=== PATIENT | female | born 1970 | race Caucasian/White ===

== ENCOUNTER 2019-07-19 17:16 | Inpatient (IN) ==
--- NOTE | 2019-07-19 17:33 | ERNOTE ---
Abdominal HPI - Narrative Date of Service: 07/19/19 - General Chief Complaint: Abdominal Pain Time Seen by Provider: 07/19/19 17:32 Source: patient Exam Limitations: no limitations - Immun/Allergies/Home Medications Immunizatons: IMMUNIZATION HX Immunizations Up to Date Yes History of Influenza Vaccine No Hx Pneumococcal Vaccination No Allergies/Adverse Reactions: Allergies No Known Allergies Allergy (Unverified 07/19/19 17:24) Home Medications: HOME MEDICATIONS NK 07/19/19 [Last Taken Unknown] - Pain Score Pain Score #1 Pain Score: 9 Abdominal Pain Onset Location: RUQ, RLQ, epigastric Pain Radiation: chest - History of Present Illness Narrative: 49 yr old female in good health presents with RUQ and RLQ pain since yesterday. Describes as sharp, rates /10. Reports nausea and vomiting. Denies any fever or chills. Radiates to epigastric and chest region. Reports decreased appetite. Denies any difficulty in urination. Last ate cereal at 1:30 pm today. Denies any aggravating or alleviating factors. Date (Duration): 07/19/19 Time (Timing): 17:32 Timing: constant Quality: severe Activities at Onset: none Modifying Factors - (Improves): Present: other - nothing Modifying Factors - (Worsens): Present: other - nothing Associated Symptoms: Present: chest pain - epigastric, heartburn, nausea, vomiting, loss of appetite. Absent: headache, diaphoresis, diarrhea-gross blood, diarrhea-mucous, fever/chills, shortness of breath Prior Abdominal Problems: Present: none Review of Systems - Review of Systems Constitutional: Absent: recent illness, fever, diaphoresis EYE: Present: no symptoms reported ENT: Present: no symptoms reported Respiratory: Absent: shortness of breath Cardiology: Present: chest pain Gastrointestinal/Abdominal: Present: nausea, vomiting, abdominal pain, eating less, drinking less. Absent: diarrhea Genitourinary: Absent: pain, dysuria Musculoskeletal: Present: no symptoms reported Skin: Present: no symptoms reported Neurological: Present: no symptoms reported Endocrine: Present: no symptoms reported Hematologic/Lymphatic: Present: no symptoms reported Psych: Present: no symptoms reported All Other Systems: All systems neg except as marked Medical History (Updated 07/19/19 @ 17:22 by Sylvia Simpson RN) No active medical problems Surgical History: Surgical History (Updated 07/19/19 @ 17:22 by Sylvia Simpson RN) H/O cone biopsy of cervix H/O dilation and curettage Family History: Family History (Last Reviewed 07/19/19 @ 20:14 by ANNE Richardson) Mother Ovarian cancer Father Hypertension Diabetes Social History: (Last Reviewed 07/19/19 @ 20:14 by ANNE Richardson) Tobacco: Smoking Status: Current every day smoker Smoking cigarettes per day: 15 Alcohol: alcohol intake: current alcohol intake frequency: holiday/special occasion Substance Use: substance use type: does not use Physical Exam - Physical Exam General Appearance: Present: wd/wn, alert, no apparent distress Head Exam: Present: normal inspection, no evidence of injury Eye Exam: Normal inspection: bilateral, PERRL: bilateral, EOMI: bilateral Ears, Nose, Throat: Present: normal ENT inspection, normal pharynx Neck: Present: normal inspection Respiratory: Present: no respiratory distress, normal breath sounds, no accessory muscle use, chest nontender, lungs clear Cardiovascular/Chest: Present: regular rate, rhythm, no murmur, normal peripheral pulses Gastrointestinal/Abdominal: Present: nondistended, soft, tenderness - Tenderness to palpation over the RLQ and RUQ , abnormal bowel sounds - decreased bowel sounds, McBurney sign, Self sign. Absent: distended, guarding, rebound Back Exam: Present: normal inspection, normal range of motion, no CVA tenderness, no vertebral tenderness Extremity Exam: Present: normal inspection, normal range of motion, no edema Neurological Exam: Present: alert, oriented, normal mood/affect, no motor/sensory deficits Skin Exam: Present: normal color, warm/dry Progress - Results and Orders Patient's Lab Results:: I have reviewed the patient's lab results. Results and Orders: Laboratory Tests 07/19/19 07/19/19 07/19/19 17:48 17:48 17:48 WBC 11.1 H Hgb 14.4 Hct 43.8 Plt Count 287 Sodium 142 Potassium 3.7 Chloride 103 Carbon Dioxide 28.3 Anion Gap 14.4 H BUN 13 Creatinine 0.74 Random Glucose 127 H Calcium 9.7 Total Bilirubin 0.5 AST 31 ALT 38 Alkaline Phosphatase 98 Total Protein 7.9 Albumin 4.1 Amylase 43 Lipase 96 Serum HCG, Qual Negative - Vital Signs Patient's Vital Signs:: I have reviewed the patient's vital signs. Vital Signs: Vital Signs 07/19/19 17:26 Temperature 36.6 C Pulse Rate 83 Respiratory Rate 18 Blood Pressure 145/95 H O2 Sat by Pulse Oximetry 99 - CT/Ultrasound CT/Ultrasound Narrative: CT abd/pelvis - acute appendicitis - Progress/Reassessment Chief Complaint: Abdominal Pain Progress:: Improved Progress Note-Subjective: 07/19/19 20:54 Test results and etiology reviewed with the patient. Case staffed with Dr. Diane who accepts the patient for surgery. Surgical crew will be called in. Pain is improved, rates 4/10. Nausea is resolved. - Transfer of Care Physician Sign Out: Alaina Martinez Brief History: 49 yr old two day hx of RUQ and RLQ abdominal pain with nausea and decreased appetite. Last ate cereal at 1:[address] shows acute appendicitis Receiving Physician: Sarah Beth Diane Pending Results: Physician/consult arrival Expected Disposition: Admit Plan - Plan Plan: Transferred to Dr. Diane's care to go to surgery. Departure Clinical Impression: Acute appendicitis Qualifiers: Acute appendicitis type: unspecified acute appendicitis type Qualified Code(s): K35.80 - Unspecified acute appendicitis - Departure Disposition: Still a patient Condition: Good Referrals: Arelis Dallas DO [Primary Care Provider] -
[2019-07-19] MEDS ORDERED: MORPHINE SULFATE 2 MG/ML DISP.SYRIN IV ONE (17:42)
[2019-07-19] MEDS ORDERED: NORMAL SALINE 1,000 ML IV ONE (17:42)
[2019-07-19] MEDS ORDERED: ONDANSETRON HCL/PF 2 MG/ML VIAL IV ONE (17:42)
[2019-07-19 17:55] LABS: Hematocrit 43.8 % (37.0-47.0); Hemoglobin 14.4 gm/dL (12.5-16.0); Mean Cell Volume 100.7 fl (78-100); Mean Corpuscular Hemoglobin 33.1 pg (27-31); Mean Corpuscular Hgb Conc 32.9 g/dl (32-36); Mean Platelet Volume 9.2 fl (8-12.5); Neutrophil # 8.7 K/mm3 (1.3-6.0); Neutrophil % 78.6 % (42-75.0); Platelet Count 287 K/mm3 (150-450); Red Blood Count 4.35 M/mm3 (4.2-5.4); Red Cell Distribution Width 13.4 % (11.5-14.0); White Blood Count 11.1 K/mm3 (4.0-10.5)
[2019-07-19 18:09] LABS: Albumin * 4.1 gm/dl (3.4-5.0); Anion Gap 14.4 mmol/L (6.8-13.8); BUN/Creatinine Ratio 17.6 (9.0-21.6); Bilirubin, Total 0.5 mg/dL (0.0-1.1); Ca. Corrected For Albumin 9.3 mg/dL (8.4-10.2); Calcium * 9.7 mg/dL (7.9-10.9); Carbon Dioxide 28.3 mmol/L (24-32.6); Potassium 3.7 mmol/L (3.4-4.6); Total Protein 7.9 gm/dL (6.2-8.2)
[2019-07-19] MEDS ORDERED: HYDROmorphone HCL 1 MG/ML DISP.SYRIN IV ONE ×2 (18:23→21:03)
[2019-07-19] MEDS ORDERED: DIATRIZOATE MEGLUMINE, SODIUM 30 ML BTL ONE (18:37)
[2019-07-19] MEDS ORDERED: DIATRIZOATE MEGLUMINE, SODIUM 30 ML BTL PO ONE (18:37)
[2019-07-19 19:36] LABS: Urine Bilirubin 1 mg/dl (NEGATIVE); Urine Ketone 15 mg/dL (NEGATIVE); Urine Nitrite Negative (NEGATIVE); Urine Protein 15 mg/dL (NEGATIVE); Urine Specific Gravity >=1.030 SP.GR. (1.005-1.010); Urine Urobilinogen Normal (NORMAL)
[2019-07-19 20:00] LABS: Urine Appearance Slightly Cloudy (CLEAR); Urine Blood 10 /ul (NEGATIVE); Urine Color Yellow
[2019-07-19 20:01] LABS: Urine Bacteria 1+; Urine Renal Epithelial Cell Few - 1+ /hpf; Urine WBC 0-5 /hpf (0-5)
[2019-07-19] MEDS ORDERED: LIDOCAINE HCL 20 ML VIAL ONE (21:14)
[2019-07-19] MEDS ORDERED: KETOROLAC TROMETHAMINE 30 MG/ML VIAL ONE (21:15)
[2019-07-19] MEDS ORDERED: GLYCOPYRROLATE 0.2 MG/ML VIAL ONE (21:15)
[2019-07-19] MEDS ORDERED: ONDANSETRON HCL/PF 2 MG/ML VIAL ONE (21:15)
[2019-07-19] MEDS ORDERED: fentaNYL CITRATE/PF 50 MCG/ML AMPUL ONE (21:15)
[2019-07-19] MEDS ORDERED: NEOSTIGMINE METHYLSULFATE 1 MG/ML VIAL ONE (21:15)
[2019-07-19] MEDS ORDERED: ROCURONIUM BROMIDE 10 MG/ML VIAL ONE (21:16)
[2019-07-19] MEDS ORDERED: PROPOFOL VIAL IV ONE (21:16)
[2019-07-19] MEDS ORDERED: SUCCINYLCHOLINE CHLORIDE 20 MG/ML VIAL ONE (21:16)
[2019-07-19] MEDS ORDERED: MUPIROCIN 22 APPL TUBE TP ONE (21:30)
[2019-07-19] MEDS ORDERED: BUPIVACAINE HCL/EPINEPHRINE 50 ML VIAL ONE (21:31)
[2019-07-19] MEDS ORDERED: ISOPROPYL ALCOHOL 480 APPL BTL MC ONE (21:32)
--- NOTE | 2019-07-19 21:38 | ANES ---
Anesthesia Pre Procedure Eval Vitals/Labs: Last Vital Signs Temp 36.6 C 07/19/19 17:26 Pulse 88 07/19/19 18:15 Resp 18 07/19/19 18:15 BP 126/88 07/19/19 18:15 Pulse Ox 96 07/19/19 18:15 HOME MEDICATIONS NK 07/19/19 [Last Taken Unknown] Allergies/Adverse Reactions: Allergies Allergy/AdvReac Type Severity Reaction Status Date / Time No Known Allergies Allergy Unverified 07/19/19 17:24 - Planned Procedure Planned Procedure: Lap Appy Medication List Reviewed:: Yes Allergies Verified: Yes Medical History (Updated 07/19/19 @ 20:59 by ANNE Richardson) No active medical problems Surgical History (Updated 07/19/19 @ 17:22 by Sylvia Simpson RN) H/O cone biopsy of cervix H/O dilation and curettage Family History (Last Reviewed 07/19/19 @ 21:37 by Jarrod Peña CRNA) Mother Ovarian cancer Father Hypertension Diabetes - Family Anesthesia History Family History:: no untoward family reactions to anesthesia, no familial bleeding tendencies, no family history of clotting disorders, no family history of premature - Airway/Neck/Teeth Within Normal Limits:: Yes Teeth Condition: intact Mallampatti Score: 2 Thyromental (T-M) distance: > 6 cm Mandibulo Hyoid distance: > 3 cm - Respiratory Respiratory Physical: lungs clear Smoking Status: Current every day smoker Discussed smoking cessation including day of surgery: Yes Sleep Apnea currently treated: No Sleep Apnea by current assessment: No Discussed Risks/Treatment of MARIPOSA: No - Cardiovascular Tolerate Activity: Good Heart Sounds: S1 & S2, Regular - Anesthesia Assessment and Plan ASA Class: PS, II, E Anesthesia Type Plan: General ET
--- NOTE | 2019-07-19 21:38 | HP ---
Chief Complaint - Chief Complaint Date of Service: 07/19/19 Time of Service: 21:32 Chief Complaint: abdominal pain, appendicitis History of Present Illness: Started with abdominal pain yesterday. Continued today and moved to [facility]. WBC elevated, RLQ tenderness and CT scan evidence of acute appendicitis Medical History (Updated 07/19/19 @ 20:59 by ANNE Richardson) No active medical problems Surgical History: Surgical History (Updated 07/19/19 @ 17:22 by Sylvia Simpson RN) H/O cone biopsy of cervix H/O dilation and curettage Family History: Family History (Last Reviewed 07/19/19 @ 21:34 by Sarah Beth Diane MD) Mother Ovarian cancer Father Hypertension Diabetes Social History: (Last Reviewed 07/19/19 @ 21:34 by Sarah Beth Diane MD) Tobacco: Smoking Status: Current every day smoker Smoking cigarettes per day: 15 Alcohol: alcohol intake: current alcohol intake frequency: holiday/special occasion Substance Use: substance use type: does not use Review Of Systems (GEN) - Review of Systems Generalized/Overall Review: Present: Malaise. Absent: Chills, Fever EENTM: Present: No Symptoms Reported Respiratory: Present: No Symptoms Reported Cardiac: Present: No Symptoms Reported Abdominal: Present: Abdominal Pain Genitourinary: Present: No Symptoms Reported Musculoskeletal: Present: No Symptoms Reported Neurological: Present: No Symptoms Reported Skin: Present: No Symptoms Reported Misc: All systems neg except as marked Immunizations: IMMUNIZATION HX Immunizations Up to Date Yes History of Influenza Vaccine No Hx Pneumococcal Vaccination No Allergies/Adverse Reactions: Allergies Allergy/AdvReac Type Severity Reaction Status Date / Time No Known Allergies Allergy Unverified 07/19/19 17:24 Home Medications: HOME MEDICATIONS NK 07/19/19 [Last Taken Unknown] Exam - Exam Vital Signs: Vital Signs - Last Taken Temp 36.6 C 07/19/19 17:26 Pulse 88 07/19/19 18:15 Resp 18 07/19/19 18:15 BP 126/88 07/19/19 18:15 Pulse Ox 96 07/19/19 18:15 Constitutional: Present: Alert, Oriented x3, Cooperative, Obese ENT Exam: Present: normal ENT inspection Eye Exam: bilateral eye: normal inspection Neck: Present: full range of motion, normal inspection Back Exam: Present: normal inspection, no CVA tenderness Breasts: Present: Exam deferred Respiratory: Present: normal breath sounds Cardiovascular/Chest: Present: regular rate, rhythm, no murmur Abdomen: Present: other - tender RLQ /Rectal: Present: Exam deferred Extremity: Present: normal range of motion, normal inspection, no pedal edema, no calf tenderness Skin Exam: Present: warm/dry Neurologic: Present: 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, normal cerebellar test, no motor/sensory deficits, alert Appearance: Present: appropriate appearance, appropriate insight, neat Eye contact: Present: cooperative, good eye contact, normal speech Thoughts: Present: normal thought pattern Diagnostic Studies: Abnormal Lab Results 07/19/19 07/19/19 07/19/19 Range/Units 17:48 17:48 19:32 WBC 11.1 H (4.0-10.5) K/mm3 MCV 100.7 H (78-100) fl MCH 33.1 H (27-31) pg Immature Gran % (Auto) 0.50 H (0.001-0.429) % Immature Gran # (Auto) 0.05 H (0.000-0.0310) K/mm3 Neutrophils % 78.6 H (42-75.0) % Lymphocytes % 13.9 L (20-51) % Neutrophils # 8.7 H (1.3-6.0) K/mm3 Anion Gap 14.4 H (6.8-13.8) mmol/L Random Glucose 127 H (70-110) mg/dL Urine Protein 15 H (NEGATIVE) mg/dL Urine Blood 10 H (NEGATIVE) /ul Urine Bilirubin 1 H (NEGATIVE) mg/dl Urine Ictotest Positive H (NEGATIVE) Urine RBC 5-10 H (0-5) /hpf Ur Renal Epithelial Cell Few - 1+ H (NONE) /hpf Calcium Oxalate Crystal Few - 1+ H (NONE) /hpf Uric Acid Crystals Moderate - 2+ H (NONE) /hpf Urine Bacteria 1+ H (NONE) Laboratory Results WBC 11.1 K/mm3 (4.0-10.5) H 07/19/19 17:48 RBC 4.35 M/mm3 (4.2-5.4) 07/19/19 17:48 Hgb 14.4 gm/dL (12.5-16.0) 07/19/19 17:48 Hct 43.8 % (37.0-47.0) 07/19/19 17:48 MCV 100.7 fl (78-100) H 07/19/19 17:48 MCH 33.1 pg (27-31) H 07/19/19 17:48 MCHC 32.9 g/dl (32-36) 07/19/19 17:48 RDW 13.4 % (11.5-14.0) 07/19/19 17:48 Plt Count 287 K/mm3 (150-450) 07/19/19 17:48 MPV 9.2 fl (8-12.5) 07/19/19 17:48 Immature Gran % (Auto) 0.50 % (0.001-0.429) H 07/19/19 17:48 Immature Gran # (Auto) 0.05 K/mm3 (0.000-0.0310) H 07/19/19 17:48 78.6 % (42-75.0) H 07/19/19 17:48 13.9 % (20-51) L 07/19/19 17:48 5.7 % (0.0-9) 07/19/19 17:48 0.9 % (0.0-3.0) 07/19/19 17:48 0.4 % (0.0-1.0) 07/19/19 17:48 Nucleated RBC % 0.0 k/mm3 (0-1) 07/19/19 17:48 8.7 K/mm3 (1.3-6.0) H 07/19/19 17:48 1.54 k/mm3 (1.5-3.5) 07/19/19 17:48 0.6 k/mm3 (0.0-1.0) 07/19/19 17:48 0.1 k/mm3 (0.0-0.7) 07/19/19 17:48 Absolute Basophils 0.0 k/mm3 (0.0-0.1) 07/19/19 17:48 Sodium 142 mmol/L (132-142) 07/19/19 17:48 142 mmol/L (130-142) 07/19/19 17:48 Potassium 3.7 mmol/L (3.4-4.6) 07/19/19 17:48 Chloride 103 mmol/L (97-106) 07/19/19 17:48 Carbon Dioxide 28.3 mmol/L (24-32.6) 07/19/19 17:48 14.4 mmol/L (6.8-13.8) H 07/19/19 17:48 BUN 13 mg/dL (3-23) 07/19/19 17:48 0.74 mg/dL (0.4-1.4) 07/19/19 17:48 Est GFR (Non-Af Amer) 89 mL/min (60-130) D 07/19/19 17:48 17.6 (9.0-21.6) 07/19/19 17:48 127 mg/dL (70-110) H 07/19/19 17:48 Calcium 9.7 mg/dL (7.9-10.9) 07/19/19 17:48 Calcium Adj for Albumin 9.3 mg/dL (8.4-10.2) 07/19/19 17:48 0.5 mg/dL (0.0-1.1) 07/19/19 17:48 AST 31 U/L (0-48) 07/19/19 17:48 ALT 38 U/L (19-67) 07/19/19 17:48 98 U/L (50-170) 07/19/19 17:48 7.9 gm/dL (6.2-8.2) 07/19/19 17:48 4.1 gm/dl (3.4-5.0) 07/19/19 17:48 Amylase 43 U/L (25-115) 07/19/19 17:48 96 U/L (73-393) 07/19/19 17:48 Serum HCG, Qual Negative (NEGATIVE) 07/19/19 17:48 Yellow 07/19/19 19:32 Slightly cloudy (CLEAR) 07/19/19 19:32 6.0 pH (5.0-7.0) 07/19/19 19:32 Ur Specific [place] >=1.030 SP.GR. (1.005-1.010) 07/19/19 19:32 15 mg/dL (NEGATIVE) H 07/19/19 19:32 Negative mg/dL (NEGATIVE) 07/19/19 19:32 15 mg/dL (NEGATIVE) 07/19/19 19:32 10 /ul (NEGATIVE) H 07/19/19 19:32 Negative (NEGATIVE) 07/19/19 19:32 1 mg/dl (NEGATIVE) H 07/19/19 19:32 Positive (NEGATIVE) H 07/19/19 19:32 Prot Sulfosalicylic Acd 1+ mg/dL (0) 07/19/19 19:32 Normal EU/dl (NORMAL) 07/19/19 19:32 Ur Leukocyte Esterase Negative /ul (NEGATIVE) 07/19/19 19:32 5-10 /hpf (0-5) H 07/19/19 19:32 0-5 /hpf (0-5) 07/19/19 19:32 Ur Epithelial Cells Trace /hpf (0-5) 07/19/19 19:32 Ur Renal Epithelial Cell Few - 1+ /hpf (NONE) H 07/19/19 19:32 Calcium Oxalate Crystal Few - 1+ /hpf (NONE) H 07/19/19 19:32 Uric Acid Crystals Moderate - 2+ /hpf (NONE) H 07/19/19 19:32 1+ (NONE) H 07/19/19 19:32 No culture indicated 07/19/19 19:32 CT scan shows acute apppendicitis Assessment/Plan - Assessment/Plan (1) Acute appendicitis Assessment: Explained appendicitis and appendectomy (laparoscopic or open). Risks and complications and expected post op course explained. After an interactive discussion her questions were answered to her apparent satisfaction and she has given informed consent for appendectomy. chlorhexidine wipes, IV Mefoxin, SCD's Problem: Acute Qualifiers: Acute appendicitis type: unspecified acute appendicitis type Qualified Code(s): K35.80 - Unspecified acute appendicitis
[2019-07-19] MEDS: RINGER'S SOLUTION,LACTATED 1,000 ML IV PRN ×2 (21:50→23:05)
[2019-07-19] MEDS ORDERED: BUPIVACAINE HCL/EPINEPHRINE 50 ML VIAL IJ ONE (23:00)
[2019-07-19] MEDS ORDERED: ONDANSETRON HCL/PF 2 MG/ML VIAL IV PRN (23:25)
[2019-07-19] MEDS ORDERED: RINGER'S SOLUTION,LACTATED 1,000 ML IV PRN (23:25)
[2019-07-19] MEDS ORDERED: HYDROmorphone HCL 1 MG/ML DISP.SYRIN IV PRN (23:25)
--- NOTE | 2019-07-19 23:32 | ANES ---
Post Anesthesia Discharge - Transfer of Care Transfer of Care handoff given to nurse: Yes - Discharge from PACU Discharge from PACU when meets criteria: Yes - Discharge to ASU Discharge to ASU-no complications/pt stable: Yes
[2019-07-19] MEDS ORDERED: NALOXONE HCL 0.4 MG/ML VIAL IV PRN (23:33)
[2019-07-19] MEDS ORDERED: diphenhydrAMINE HCL 50 MG/ML VIAL IV PRN (23:33)
[2019-07-19] MEDS ORDERED: PROCHLORPERAZINE EDISYLATE 5 MG/ML VIAL IV PRN (23:33)
--- NOTE | 2019-07-19 23:33 | ANES ---
Post Anesthesia Assessment - Vital Signs Vitals: Last Vital Signs Temp 36.6 C 07/19/19 21:55 Pulse 117 H 07/19/19 21:55 Resp 16 07/19/19 21:55 BP 135/92 H 07/19/19 21:55 Pulse Ox 94 07/19/19 21:55 Airway Patency: Normal - Mental Status Level Of Consciousness: Awake - Pain Level Pain Score: 0 - N/V Assessment Nausea/Vomiting Presence: None Dehydration:: No
[2019-07-20] MEDS: oxyCODONE HCL/ACETAMINOPHEN 1 TAB TABLET PO PRN ×4 (03:35→19:57)
[2019-07-20] MEDS ORDERED: CEFOXITIN SODIUM 2 GM in DEXTROSE 5 % IN WATER 100 ML IV SCH ×2 (04:00)
[2019-07-20 05:44] LABS: Hematocrit 37.4 % (37.0-47.0); Hemoglobin 12.1 gm/dL (12.5-16.0); Mean Cell Volume 101.9 fl (78-100); Mean Corpuscular Hgb Conc 32.4 g/dl (32-36); Mean Platelet Volume 9.4 fl (8-12.5); Neutrophil # 15.5 K/mm3 (1.3-6.0); Neutrophil % 89.7 % (42-75.0); Platelet Count 226 K/mm3 (150-450); Red Blood Count 3.67 M/mm3 (4.2-5.4); Red Cell Distribution Width 13.7 % (11.5-14.0); White Blood Count 17.3 K/mm3 (4.0-10.5)
[2019-07-20] MEDS ORDERED: CEFOXITIN SODIUM 2 GM in DEXTROSE 5 % IN WATER 100 ML IV PRN ×2 (06:00)
[2019-07-20] MEDS: PIPERACILLIN SODIUM/TAZOBACTAM 3.375 GM in DEXTROSE 5 % IN WATER 100 ML IV SCH ×6 (08:40→23:15)
[2019-07-20] MEDS: SACCHAROMYCES BOULARDII 250 MG CAPSULE PO SCH ×2 (08:46→20:30)
--- NOTE | 2019-07-20 12:41 | OR ---
Operative Report - Dictated Report Narrative: Date of operation 07/19/2019 Preoperative diagnosis: Acute appendicitis Postoperative diagnosis: Acute appendicitis with rupture and generalized peritonitis Operation: Laparoscopic appendectomy Surgeon: AGUSTIN Diane MD Anesthesia: Gen. cachorro Peña CRNA Indications for procedure: The patient is a 49-year-old female with a 2-day history of abdominal pain. She presented to the emergency room where she was found to have right lower quadrant tenderness, elevated white blood cell count, and CT scan evidence of acute appendicitis. Findings: Acute appendicitis with generalized peritonitis Narrative of procedure: The patient was identified preoperatively, and prior to the administration of anesthetic a multidisciplinary timeout was observed. The patient was placed supine, SCDs were applied, and[]. [] was administered. The patient's abdomen was prepped with Betadine solution, and a generous operating field outlined with 4 sterile towels. The remainder the patient was covered with a sterile disposable drape. A transverse infraumbilical skin incision was made, and dissection was carried along the umbilical stalk until the fascia of the linea alba was encountered. This was incised. The peritoneum was elevated and incised to allow entry into the abdomen under direct vision. There was cloudy purulent fluid encountered. A Hussan cannula was placed and the abdomen insufflated with CO2. The laparoscopic camera was introduced and the abdomen briefly explored. Immediately apparent was erythematous small bowel with exudate. There was cloudy fluid in the pelvis and along the right gutter. The liver, stomach, and colon visualized appeared normal. The appendix was not immediately visible. The small bowel in the right lower quadrant was erythematous with exudate. Next under direct vision, 2 additional working ports were inserted through separate skin incisions, one in the suprapubic area one in the left lower quadrant. The fluid in the pelvis and along the right gutter was carefully suctioned clean. The apex of the cecum was then elevated revealing markedly inflamed appendix. This was gradually developed by blunt dissection back to a viable appearing appendiceal base. The appendix appeared amenable to laparoscopic removal. The appendix and mesoappendix were crossclamped with a laparoscopic REYNOLD stapling device. The stump of the appendix was seen to be hemostatic and gas and liquid tight. The mesoappendix was seen to be hemostatic. The appendix was placed in an Endobag and parked in the right lower quadrant. The abdomen was again suctioned clean of all visible fluid and exudate. A sample of exudate was submitted for culture. The small working ports were then withdrawn under direct vision to ensure entry site hemostasis. The appendix was removed in conjunction with the Hussan cannula. The pneumoperitoneum was allowed to escape, and after receiving a correct sponge needle and instrument count attention was turned to closing the abdomen. The fascia and peritoneum at the umbilicus were approximated with interrupted sutures of #1 Vicryl. Subcutaneous tissue at the umbilicus was approximated with a single chromic suture. Skin incisions were approximated with interrupted vertical mattress sutures of 4-0 nylon. The operative sites were washed and dried. Dressings of Bactroban ointment and large Band-Aids were applied to the small port sites. The umbilical incision was dressed with Bactr oban ointment, 2 x 2, large Band-Aid, and Medipore tape. The operative procedure was terminated at this point. There was no measurable blood loss. 0.5% Marcaine with epinephrine was used for local anesthetic infiltration area the appendix was submitted to pathology. The patient tolerated the anesthetic and procedure well without complication and was transferred to the recovery room awake, extubated, and in stable condition. Reviewed and electronically signed
--- NOTE | 2019-07-20 19:30 | PN ---
Subjective - Date and Time Seen Date: 07/20/19 Time: 19:25 Subjective Narrative: feels much better, just sore from incisions Objective - Review of Systems Generalized/Overall Review: Denies: Chills, Fever EENTM: Reports: No Symptoms Reported Respiratory: Reports: No Symptoms Reported Cardiac: Reports: No Symptoms Reported Abdominal: Reports: Other - pain is now incisional Genitourinary Symptoms: Reports: No Symptoms Reported Musculoskeletal Complaints: Reports: No Symptoms Reported Skin: Reports: No Symptoms Reported Endocrine: Reports: No Symptoms Reported Misc: All systems neg except as marked - Vitals Vitals: Last Vital Signs Temp 37.3 C 07/20/19 17:20 Pulse 88 07/20/19 17:20 Resp 14 07/20/19 17:20 BP 120/80 07/20/19 17:20 Pulse Ox 96 07/20/19 17:20 - Abnormal Lab Findings Abnormal Lab Findings: Abnormal Lab Results 07/19/19 07/20/19 Range/Units 19:32 05:20 WBC 17.3 H D (4.0-10.5) K/mm3 RBC 3.67 L (4.2-5.4) M/mm3 Hgb 12.1 L (12.5-16.0) gm/dL MCV 101.9 H (78-100) fl MCH 33.0 H (27-31) pg Immature Gran % (Auto) 0.70 H (0.001-0.429) % Immature Gran # (Auto) 0.12 H (0.000-0.0310) K/mm3 Neutrophils % 89.7 H (42-75.0) % Lymphocytes % 4.5 L (20-51) % Neutrophils # 15.5 H (1.3-6.0) K/mm3 Lymphocytes # 0.77 L (1.5-3.5) k/mm3 Urine Protein 15 H (NEGATIVE) mg/dL Urine Blood 10 H (NEGATIVE) /ul Urine Bilirubin 1 H (NEGATIVE) mg/dl Urine Ictotest Positive H (NEGATIVE) Urine RBC 5-10 H (0-5) /hpf Ur Renal Epithelial Cell Few - 1+ H (NONE) /hpf Calcium Oxalate Crystal Few - 1+ H (NONE) /hpf Uric Acid Crystals Moderate - 2+ H (NONE) /hpf Urine Bacteria 1+ H (NONE) - Exam Constitutional: Present: Alert, Oriented x3, Cooperative, Overweight ENT Exam: Present: normal ENT inspection Neck: Present: full range of motion, normal inspection Respiratory: Present: no respiratory distress Cardiovascular/Chest: Present: regular rate, rhythm Abdomen: Present: other - dressings intact /Rectal: Present: Exam deferred Extremity: Present: normal range of motion, no pedal edema, no calf tenderness Skin Exam: Present: warm/dry Neurologic: Present: 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 Encourage OOB and pulmonary toilet, SCD's re-check CBC in AM - Problems/Diagnosis (1) Acute appendicitis Problem: Acute Qualifiers: Acute appendicitis type: with generalized peritonitis Appendicitis gangrene presence: with gangrene Appendicitis perforation presence: with perforation Appendicitis abscess presence: without abscess Qualified Code(s): K35.20 - Acute appendicitis with generalized peritonitis, without abscess; K35.891 - Other acute appendicitis without perforation, with gangrene
[2019-07-21] MEDS: oxyCODONE HCL/ACETAMINOPHEN 1 TAB TABLET PO PRN ×6 (00:11→22:28)
[2019-07-21] MEDS: PIPERACILLIN SODIUM/TAZOBACTAM 3.375 GM in DEXTROSE 5 % IN WATER 100 ML IV SCH ×6 (07:11→22:30)
[2019-07-21 07:18] LABS: Hematocrit 34.6 % (37.0-47.0); Mean Cell Volume 102.4 fl (78-100); Mean Corpuscular Hemoglobin 32.5 pg (27-31); Mean Corpuscular Hgb Conc 31.8 g/dl (32-36); Mean Platelet Volume 9.1 fl (8-12.5); Neutrophil # 9.1 K/mm3 (1.3-6.0); Neutrophil % 78.8 % (42-75.0); Platelet Count 205 K/mm3 (150-450); Red Blood Count 3.38 M/mm3 (4.2-5.4); Red Cell Distribution Width 13.6 % (11.5-14.0); White Blood Count 11.5 K/mm3 (4.0-10.5)
[2019-07-21] MEDS: SACCHAROMYCES BOULARDII 250 MG CAPSULE PO SCH ×2 (08:39→22:28)
[2019-07-21 11:20] LABS: Urine Bilirubin Negative (NEGATIVE); Urine Blood 50 /ul (NEGATIVE); Urine Ketone 5 mg/dL (NEGATIVE); Urine Nitrite Negative (NEGATIVE); Urine Protein 15 mg/dL (NEGATIVE); Urine Urobilinogen Normal (NORMAL)
[2019-07-21 11:35] LABS: Urine Appearance Slightly Cloudy (CLEAR); Urine Color Yellow
[2019-07-21 11:36] LABS: Urine Bacteria None Seen; Urine WBC 0-5 /hpf (0-5)
[2019-07-21] MEDS ORDERED: BISACODYL 10 MG SUPP.RECT RC ONE (14:43)
--- NOTE | 2019-07-21 17:01 | PN ---
Subjective - Date and Time Seen Date: 07/21/19 Time: 16:39 Subjective Narrative: She is POD #2 after laparoscopic appendectomy for acute appendicitis with rupture and generalized peritonitis. Objective Objective Narrative: Overall she feels better with only incisional discomfort. She has passed some gas but has not moved her bowels. She has ambulated in the esparza. She washed her hair today - Review of Systems Generalized/Overall Review: Reports: Malaise - When her temperature was elevated she felt poorly, but did not have chills EENTM: Reports: No Symptoms Reported Respiratory: Reports: No Symptoms Reported. Denies: Cough, Shortness of Breath Cardiac: Denies: Chest Pain Abdominal: Reports: Other - Her pain now is only incisional--- presenting pain gone Genitourinary Symptoms: Reports: No Symptoms Reported Musculoskeletal Complaints: Reports: No Symptoms Reported Neurological: Reports: No Symptoms Reported Skin: Reports: No Symptoms Reported Misc: All systems neg except as marked - Vitals Vitals: Last Vital Signs Temp 37.2 C 07/21/19 15:39 Pulse 102 H 07/21/19 15:39 Resp 16 07/21/19 15:39 BP 136/94 H 07/21/19 15:39 Pulse Ox 94 07/21/19 15:39 - Abnormal Lab Findings Abnormal Lab Findings: Abnormal Lab Results 07/21/19 07/21/19 Range/Units 07:15 10:59 WBC 11.5 H D (4.0-10.5) K/mm3 RBC 3.38 L (4.2-5.4) M/mm3 Hgb 11.0 L (12.5-16.0) gm/dL Hct 34.6 L (37.0-47.0) % MCV 102.4 H (78-100) fl MCH 32.5 H (27-31) pg MCHC 31.8 L (32-36) g/dl Immature Gran % (Auto) 0.50 H (0.001-0.429) % Immature Gran # (Auto) 0.06 H (0.000-0.0310) K/mm3 Neutrophils % 78.8 H (42-75.0) % Lymphocytes % 12.7 L (20-51) % Neutrophils # 9.1 H (1.3-6.0) K/mm3 Lymphocytes # 1.46 L (1.5-3.5) k/mm3 Urine Protein 15 H (NEGATIVE) mg/dL Urine Blood 50 H (NEGATIVE) /ul Urine RBC 5-10 H (0-5) /hpf - Exam Constitutional: Present: Alert, Oriented x3, Cooperative, No distress, Overweight ENT Exam: Present: normal ENT inspection Neck: Present: full range of motion, normal inspection Respiratory: Present: normal breath sounds Cardiovascular/Chest: Present: regular rate, rhythm, tachycardia Abdomen: Present: other - Dressings dry and intact Extremity: Present: normal range of motion, no pedal edema, no calf tenderness Skin Exam: Present: warm/dry 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 There is a lot of colon gas and contrast Urinalysis is negative for WBCs. Blood cultures were obtained. The cultures from the peritoneal cavity are no growth Will continue IV Zosyn, encourage pulmonary toilet and ambulation. We will give Dulcolax to decrease abdominal gas Will recheck CBC tomorrow. - Problems/Diagnosis (1) Acute appendicitis Problem: Acute Qualifiers: Acute appendicitis type: with generalized peritonitis Appendicitis gangrene presence: with gangrene Appendicitis perforation presence: with perforation Appendicitis abscess presence: without abscess Qualified Code(s): K35.20 - Acute appendicitis with generalized peritonitis, without abscess; K35.891 - Other acute appendicitis without perforation, with gangrene
[2019-07-21] MEDS ORDERED: BISACODYL 5 MG TABLET.DR PO ONE (17:19)
[2019-07-22] MEDS: oxyCODONE HCL/ACETAMINOPHEN 1 TAB TABLET PO PRN ×5 (02:53→23:18)
[2019-07-22 07:23] LABS: Hematocrit 34.5 % (37.0-47.0); Hemoglobin 11.3 gm/dL (12.5-16.0); Mean Cell Volume 100.9 fl (78-100); Mean Corpuscular Hgb Conc 32.8 g/dl (32-36); Mean Platelet Volume 9.1 fl (8-12.5); Neutrophil # 5.7 K/mm3 (1.3-6.0); Neutrophil % 70.7 % (42-75.0); Platelet Count 237 K/mm3 (150-450); Red Blood Count 3.42 M/mm3 (4.2-5.4); Red Cell Distribution Width 13.4 % (11.5-14.0); White Blood Count 8.1 K/mm3 (4.0-10.5)
[2019-07-22] MEDS: PIPERACILLIN SODIUM/TAZOBACTAM 3.375 GM in DEXTROSE 5 % IN WATER 100 ML IV SCH ×6 (07:33→23:15)
[2019-07-22] MEDS: SACCHAROMYCES BOULARDII 250 MG CAPSULE PO SCH ×2 (08:14→20:42)
--- NOTE | 2019-07-22 20:32 | PN ---
Subjective - Date and Time Seen Date: 07/22/19 Time: 20:29 Subjective Narrative: She is POD #3 after laparoscopic appendectomy for acute appendicitis with rupture and generalized peritonitis. Objective Objective Narrative: Feels much better, no elevated temp and WBC to normal - Review of Systems Generalized/Overall Review: Denies: Chills, Fever EENTM: Reports: No Symptoms Reported Respiratory: Reports: No Symptoms Reported. Denies: Cough Cardiac: Reports: No Symptoms Reported. Denies: Chest Pain Abdominal: Reports: Other - incisional discomfort only. Denies: Nausea, Vomiting Genitourinary Symptoms: Reports: No Symptoms Reported Musculoskeletal Complaints: Reports: No Symptoms Reported Neurological: Reports: No Symptoms Reported Skin: Reports: No Symptoms Reported Endocrine: Reports: No Symptoms Reported - Vitals Vitals: Last Vital Signs Temp 37.0 C 07/22/19 19:47 Pulse 81 07/22/19 19:47 Resp 20 07/22/19 19:47 BP 134/93 H 07/22/19 19:47 Pulse Ox 95 07/22/19 19:47 - Abnormal Lab Findings Abnormal Lab Findings: Abnormal Lab Results 07/22/19 Range/Units 07:17 RBC 3.42 L (4.2-5.4) M/mm3 Hgb 11.3 L (12.5-16.0) gm/dL Hct 34.5 L (37.0-47.0) % MCV 100.9 H (78-100) fl MCH 33.0 H (27-31) pg Lymphocytes % 16.3 L (20-51) % Monocytes % 9.5 H (0.0-9) % Lymphocytes # 1.32 L (1.5-3.5) k/mm3 - Exam Constitutional: Present: Alert, Oriented x3, Cooperative, Overweight ENT Exam: Present: normal ENT inspection Neck: Present: full range of motion, normal inspection Respiratory: Present: no respiratory distress Cardiovascular/Chest: Present: regular rate, rhythm Abdomen: Present: other - dressings intact Extremity: Present: normal range of motion, no pedal edema, no calf tenderness Skin Exam: Present: warm/dry 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 Encourage OOB/pulmonary toilet - Problems/Diagnosis (1) Acute appendicitis Problem: Acute Qualifiers: Acute appendicitis type: with generalized peritonitis Appendicitis gangrene presence: with gangrene Appendicitis perforation presence: with perforation Appendicitis abscess presence: without abscess Qualified Code(s): K35.20 - Acute appendicitis with generalized peritonitis, without abscess; K35.891 - Other acute appendicitis without perforation, with gangrene
[2019-07-23] MEDS: oxyCODONE HCL/ACETAMINOPHEN 1 TAB TABLET PO PRN ×2 (04:08→09:13)
[2019-07-23] MEDS: PIPERACILLIN SODIUM/TAZOBACTAM 3.375 GM in DEXTROSE 5 % IN WATER 100 ML IV SCH ×2 (06:59)
[2019-07-23] MEDS: SACCHAROMYCES BOULARDII 250 MG CAPSULE PO SCH (08:15)
--- NOTE | 2019-07-23 09:11 | DS ---
(1) Acute appendicitis Problem: Acute Qualifiers: Acute appendicitis type: with generalized peritonitis Appendicitis gangrene presence: with gangrene Appendicitis perforation presence: with perforation Appendicitis abscess presence: without abscess Qualified Code(s): K35.20 - Acute appendicitis with generalized peritonitis, without abscess; K35.891 - Other acute appendicitis without perforation, with gangrene Date of Discharge:: 07/23/19 Description of Stay: She underwent a laparoscopic appendectomy for acute appendicitis with perforation and generalized peritonitis on 07/19/2019. VTE prophylaxis was accomplished with SCDs and early ambulation. Chlorhexidine wipes and preoperative IV antibiotics were used. She was admitted for IV antibiotics due to the generalized peritonitis. Cultures from surgery were no growth. She was maintained on IV Zosyn. Her white blood cell count decreased to normal however she continued to have elevated temperatures. She was able to tolerate an advanced diet and ambulate without assistance. Her incisions appear to be healing well. She will be discharged home with instructions not to lift. Regular diet. Change dressings daily or as needed. Continue home medications. Prescription given for Percocet 5/325 mg for pain. She has numbers to call for questions or concerns. Return office appointment will be made for 1 week Procedures Performed: see notes below - Laparoscopic appendectomy Results and Findings: Pending Mircobiology Results 07/21/19 Unknown Blood Blood Culture - Preliminary NO GROWTH 24 HOURS 07/21/19 10:40 Blood Blood Culture - Preliminary NO GROWTH 24 HOURS Lab Pending Results 07/19/19 01:50: Pathology Specimen Sent to path 07/19/19 17:48: WBC 11.1 H, RBC 4.35, Hgb 14.4, Hct 43.8, MCV 100.7 H, MCH 33.1 H, MCHC 32.9, RDW 13.4, Plt Count 287, MPV 9.2, Immature Gran % (Auto) 0.50 H, Immature Gran # (Auto) 0.05 H, Neutrophils % 78.6 H, Lymphocytes % 13.9 L, Monocytes % 5.7, Eosinophils % 0.9, Basophils % 0.4, Nucleated RBC % 0.0, Neutrophils # 8.7 H, Lymphocytes # 1.54, Monocytes # 0.6, Eosinophils # 0.1, Absolute Basophils 0.0 07/19/19 17:48: Sodium 142, Plasma Sodium 142, Potassium 3.7, Chloride 103, Carbon Dioxide 28.3, Anion Gap 14.4 H, BUN 13, Creatinine 0.74, Est GFR (Non-Af Amer) 89 D, BUN/Creatinine Ratio 17.6, Random Glucose 127 H, Calcium 9.7, Calcium Adj for Albumin 9.3, Total Bilirubin 0.5, AST 31, ALT 38, Alkaline Phosphatase 98, Total Protein 7.9, Albumin 4.1, Amylase 43, Lipase 96 07/19/19 17:48: Serum HCG, Qual Negative 07/19/19 19:32: Urine Color Yellow, Urine Appearance Slightly cloudy, Urine pH 6.0, Ur Specific Drew >=1.030, Urine Protein 15 H, Urine Glucose (UA) N egative, Urine Ketones 15, Urine Blood 10 H, Urine Nitrate Negative, Urine Bilirubin 1 H, Urine Ictotest Positive H, Prot Sulfosalicylic Acd 1+, Urine Urobilinogen Normal, Ur Leukocyte Esterase Negative, Urine RBC 5-10 H, Urine WBC 0-5, Ur Epithelial Cells Trace, Ur Renal Epithelial Cell Few - 1+ H, Calcium Oxalate Crystal Few - 1+ H, Uric Acid Crystals Moderate - 2+ H, Urine Bacteria 1+ H, Urine Culture Comments No culture indicated 07/20/19 05:20: WBC 17.3 H D, RBC 3.67 L, Hgb 12.1 L, Hct 37.4, MCV 101.9 H, MCH 33.0 H, MCHC 32.4, RDW 13.7, Plt Count 226, MPV 9.4, Immature Gran % (Auto) 0.70 H, Immature Gran # (Auto) 0.12 H, Neutrophils % 89.7 H, Lymphocytes % 4.5 L, Monocytes % 5.0, Eosinophils % 0.0, Basophils % 0.1, Nucleated RBC % 0.0, Neutrophils # 15.5 H, Lymphocytes # 0.77 L, Monocytes # 0.9, Eosinophils # 0.0, Absolute Basophils 0.0 07/21/19 07:15: WBC 11.5 H D, RBC 3.38 L, Hgb 11.0 L, Hct 34.6 L, MCV 102.4 H, MCH 32.5 H, MCHC 31.8 L, RDW 13.6, Plt Count 205, MPV 9.1, Immature Gran % (Auto) 0.50 H, Immature Gran # (Auto) 0.06 H, Neutrophils % 78.8 H, Lymphocytes % 12.7 L, Monocytes % 7.0, Eosinophils % 0.7, Basophils % 0.3, Nucleated RBC % 0.0, Neutrophils # 9.1 H, Lymphocytes # 1.46 L, Monocytes # 0.8, Eosinophils # 0.1, Absolute Basophils 0.0 07/21/19 10:59: Urine Color Yellow, Urine Appearance Slightly cloudy, Urine pH 6.0, Ur Specific Drew 1.010, Urine Protein 15 H, Urine Glucose (UA) Negative, Urine Ketones 5, Urine Blood 50 H, Urine Nitrate Negative, Urine Bilirubin Negative, Prot Sulfosalicylic Acd Negative, Urine Urobilinogen Normal, Ur Leukocyte Esterase Negative, Urine RBC 5-10 H, Urine WBC 0-5, Ur Epithelial Cells 0-5, Urine Bacteria None seen 07/22/19 07:17: WBC 8.1 D, RBC 3.42 L, Hgb 11.3 L, Hct 34.5 L, MCV 100.9 H, MCH 33.0 H, MCHC 32.8, RDW 13.4, Plt Count 237, MPV 9.1, Immature Gran % (Auto) 0.40, Immature Gran # (Auto) 0.03, Neutrophils % 70.7, Lymphocytes % 16.3 L, Monocytes % 9.5 H, Eosinophils % 2.6, Basophils % 0.5, Nucleated RBC % 0.0, Neutrophils # 5.7, Lymphocytes # 1.32 L, Monocytes # 0.8, Eosinophils # 0.2, Absolute Basophils 0.0 Discharge Location: Home Disposition: Home self-care Condition: Good Discharge Activity: No Lifting Discharge Diet: General/regular food Referrals: Sarah Beth Diane MD [Staff Physician] - Arelis Dallas DO [Primary Care Provider] - Problem Oriented Discharge Instructions to Patient/Family: Laparoscopic Appendectomy, Adult, Care After, [id number] Additional Patient Instructions (free text): Return office appointment 1 week Prescriptions (Any new or edited meds): oxyCODONE HCL/ACETAMINOPHEN [Percocet 5 MG/325 MG] 1 tab PO Q4H PRN #30 tab PRN Reason: Moderate Pain (Pain Scale 4-6) Prescription Printed Complete Home Medications List: Complete Home Medication List: Multivitamin [Daily Multiple Vitamin] 1 ea PO DAILY 07/20/19 oxyCODONE HCL/ACETAMINOPHEN [Percocet 5 MG/325 MG] 1 tab PO Q4H PRN #30 tab 07/23/19
[2019-07-23 10:35] VITALS: BP 121/70
== END 2019-07-23 11:15 | disposition home or self-care (01) | DRG 343 ==
LOC: ER 17:16 → AMB 21:07 → MS 21:07 → AMB 21:55
PROVIDERS: ADMIT Surgery; ATTEND Surgery
DX: K35.20 Acute appendicitis with generalized peritonitis, without abscess
CPT/HCPCS: 36415; 71020; 71046; 74177; 80053; 81001; 82150; 83690; 84703; 85025; 87040; 87070; 87075; 87086; 88304; 96374; 96375; 96376; 99285; G0378; J2405; Q9963; Q9967